=== PATIENT | female | born 2000 | race African-American/Black ===

== ENCOUNTER 2022-12-16 11:04 | Emergency (ER) | payer SELFPAY ==
[~2022-12-16] VITALS: Ht 160 cm; Wt 66.0 kg
[2022-12-16] MEDS ORDERED: SUMATRIPTAN SUCCINATE 6MG/0.5ML VIAL SUBCUT ONE (13:15)
[2022-12-16] MEDS ORDERED: ACETAMINOPHEN 325MG TABLET PO ONE (13:15)
[2022-12-16] MEDS ORDERED: ONDANSETRON 4MG ODT PO ONE (13:15)
[2022-12-16] MEDS ORDERED: IMIT25 MT (15:43)
[2022-12-16] MEDS ORDERED: ONDA4TAB50 MT (15:43)
[2022-12-16] MEDS ORDERED: TOPUD MT (15:43)
[2022-12-16 16:18] VITALS: BP 134/88
== END 2022-12-16 16:21 | disposition home or self-care (01) ==
LOC: ER 11:04
DX: S09.90XA Unspecified injury of head, initial encounter (principal); X58.XXXA Exposure to other specified factors, initial encounter; Y93.89 Activity, other specified; Y92.89 Other specified places as the place of occurrence of the external cause; Y99.8 Other external cause status; G43.909 Migraine, unspecified, not intractable, without status migrainosus
CPT/HCPCS: 70450; 70486; 81025; 96372; 99285; J3030; Q0162; Z7610